=== PATIENT | male | born 1985 ===

== ENCOUNTER 2021-12-08 10:06 | Emergency (ER) | payer SELFPAY ==
[2021-12-08 10:43] VITALS: BP 149/104; PULSE 113; RESP 14; TEMP 36.4; O2SAT 100
--- NOTE | 2021-12-08 10:51 | PC.NURSE ---
Pt decided to not be seen due to able to make an appt w/ PCP for today. Pt ambulated out in NAD.
== END 2021-12-08 10:51 | disposition left against medical advice (07) ==
LOC: ANHED 11:09
DX: M79.671 Pain in right foot (principal)
CPT/HCPCS: 99199

== ENCOUNTER → 2021-12-27 07:48 | Outpatient (CLI) | payer OTHER, SELFPAY ==
--- NOTE | ~2021-12-27 | MR_ITS ---
EXAMINATION: MR foot RT wo con DATE: 12/27/2021 08:22 INDICATION: Right foot swelling and pain TECHNIQUE: Magnetic resonance imaging (MRI) of the right fore/mid foot was performed without intraven ous contrast. Sequences included sagittal T1-weighted FSE, sagittal fluid sensitive FSE STIR, coronal PD-weighted FS FSE, coronal T1-weighted FSE, axial PD-weighted FS FSE, and axial PD-weighted FSE. COMPARISON: None FINDINGS: Bone alignment is normal. There is prominent marrow edema at the medial/tibial sesamoid of the first metatarsal with what appears to be a nondisplaced transverse fracture extending through a prominent c entral cystic changes which could represent osteonecrosis or cystic change related to osteoarthritis at the first metatarsophalangeal joint. There is small focus of marrow edema surrounding a curvilinea r low signal intensity subarticular line with subtle flattening of the overlying cortex which could r epresent a fracture either due to impaction injury or stress fracture versus more likely a small focu s of osteonecrosis. 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 Small joint effusion at the first metatarsophalangeal joint. The flexor and extensor tendons as well as intrinsic musculature of the foot are normal. Lisfranc ligamen t complex as well as the collateral ligament complex at the metatarsophalangeal and interphalangeal j oints are normal. IMPRESSION: 1. Transverse fracture across the medial/tibial first metatarsal sesamoid extending through the regio n of prominent central cystic change which could represent sequela of chronic osteonecrosis or cystic change related to mild osteoarthritis at the first metatarsophalangeal joint. 2. Tiny subarticular fracture line versus focus of osteonecrosis at the head of the first metatarsal with subtle flattening of a minimal portion of the articular cortex. Reviewed, dictated and finalized at location B. [facility] IMPRESSION: 1. Transverse fracture across the medial/tibial first metatarsal sesamoid exten ding through the region of prominent central cystic change which could represen t sequela of chronic osteonecrosis or cystic change related to mild osteoarthri tis at the first metatarsophalangeal joint. 2. Tiny subarticular fracture line versus focus of osteonecrosis at the head of the first metatarsal with subtle flattening of a minimal portion of the articu lar cortex.
== END ==
DX: M79.89 Other specified soft tissue disorders (principal); S92.311A Displaced fracture of first metatarsal bone, right foot, initial encounter for closed fracture; X58.XXXA Exposure to other specified factors, initial encounter
CPT/HCPCS: 73718